=== PATIENT | female | born 1960 | race Caucasian/White ===

== ENCOUNTER 2020-12-07 12:51 | Inpatient (IN) | payer OTHER ==
[~2020-12-07] VITALS: Ht 152.4 cm; Wt 80.5 kg
[2020-12-07] MEDS ORDERED: ASPIRIN CHEWABL81 MG PO (13:45)
[2020-12-07] MEDS ORDERED: COGENTIN0.5 MG PO (13:46)
[2020-12-07] MEDS ORDERED: BISACODYL LAXATI5 MG PO (13:47)
[2020-12-07] MEDS ORDERED: COMBIVENT RESPIM4 GM INH (13:49)
[2020-12-07] MEDS ORDERED: CRESTOR20 M1 PO (13:50)
[2020-12-07] MEDS ORDERED: DEPAKOTE250 MG PO (13:52)
[2020-12-07] MEDS ORDERED: GLIPIZIDE5 MG PO (13:53)
[2020-12-07] MEDS ORDERED: JANUVIA100 MG PO (13:54)
[2020-12-07] MEDS ORDERED: CLARITIN10 MG PO (13:55)
[2020-12-07] MEDS ORDERED: LEVOTHYROXINE50 MCG PO (13:55)
[2020-12-07] MEDS ORDERED: MELOXICAM7.5 MG PO (13:56)
[2020-12-07] MEDS ORDERED: ONE-DAILY MULT1 EAC1 PO (13:57)
[2020-12-07] MEDS ORDERED: METOCLOPRAMIDE10 M1 PO (13:57)
[2020-12-07] MEDS ORDERED: NYSTATIN CREAM15 GM T (13:59)
[2020-12-07] MEDS ORDERED: NITROSTAT0.4 MG SL (13:59)
[2020-12-07] MEDS ORDERED: OCEAN104 ML NAS (14:00)
[2020-12-07] MEDS ORDERED: OXYBUTYNIN5 MG PO (14:01)
[2020-12-07] MEDS ORDERED: MIRALAX POWDER17 G1 PO (14:01)
[2020-12-07] MEDS ORDERED: REXULTI0.5 MG PO (14:02)
[2020-12-07] MEDS ORDERED: REXULTI1 MG PO (14:03)
[2020-12-07] MEDS ORDERED: SENNA8.6 MG PO (14:04)
[2020-12-07] MEDS ORDERED: SERTRALINE HYD100 MG PO (14:04)
[2020-12-07] MEDS ORDERED: VITAMIN D325 MCG PO (14:05)
[2020-12-07] MEDS ORDERED: ZOFRAN4 MG PO (14:06)
[2020-12-07 18:19] VITALS: BP 121/68
[2020-12-07 20:00] VITALS: BP 121/73
[2020-12-08 06:50] LABS: HEMATOCRIT 25.7 % (37.0-47.0); MEAN CELL VOLUME 95.5 fl (81.0-99.0); MEAN CORPUSCULAR HGB 29.4 pg (27.0-31.0); MEAN CORPUSCULAR HGB CONC 30.7 g/dl (33.0-37.0); MEAN PLATELET VOLUME 9.7 fl (9.6-12.3); NUCLEATED RED BLOOD CELL 0.1 10*3/uL (0.0-0.0); NUCLEATED RED BLOOD CELL 1.6 % (0.0-0.0); PLATELET COUNT AUTOMATED 209 10*3/uL (130-400); RED BLOOD COUNT 2.69 10*6/uL (4.10-5.10); RED CELL DISTRI WIDTH 21.4 % (0-14.5); WHITE BLOOD COUNT 5.1 10*3/uL (4.8-10.8)
[2020-12-08 06:51] LABS: ALBUMIN 2.3 gm/dl (3.1-4.5); ALKALINE PHOSPHATASE 90 U/L (45-117); BUN 17 mg/dl (7-24); CHLORIDE 100 mmol/L (98-107); CHOLESTEROL 90 mg/dL (<200); CREATININE 0.58 mg/dL (0.55-1.02); LDL CHOLESTEROL 40 mg/dL (9-159); SGOT/AST 44 IU/L (3-35); SGPT/ALT 21 U/L (12-78); SODIUM 138 mmol/L (136-145); TOTAL PROTEIN 5.9 gm/dL (6.4-8.2); TRIGLYCERIDES 125 mg/dl (<150)
[2020-12-08 07:42] LABS: ATYPICAL LYMPHS 1 % (0-0); PLATELET SUFFICIENCY NORMAL (NORMAL); POLYCHROMASIA SLIGHT; TOTAL CELLS COUNTED 100 #CELLS
[2020-12-08 07:55] VITALS: BP 110/59
[2020-12-08 08:25] LABS: VITAMIN D, 25-HYDROXY 63.9 ng/mL (30-100)
[2020-12-08 20:00] VITALS: BP 127/60
[2020-12-09 07:20] VITALS: BP 116/62
[2020-12-09 19:47] VITALS: BP 114/63
[2020-12-10 07:58] VITALS: BP 119/58
[2020-12-10 18:05] LABS: BILIRUBIN Negative (Negative); BLOOD Negative (Negative); CLARITY Clear (Clear); COLOR Dark Yellow (Yellow); GLUCOSE Negative (Negative); KETONE Trace (Negative); LEUKO ESTERASE Negative (Negative); NITRITE Negative (Negative); SPECIFIC GRAVITY 1.015 (1.001-1.030)
[2020-12-10 18:15] LABS: BACTERIA TRACE; EPITHELIAL CELLS 0-2; MUCOUS TRACE
[2020-12-10 20:00] VITALS: BP 126/86
[2020-12-11 07:45] VITALS: BP 120/74
[2020-12-11 20:00] VITALS: BP 127/54
[2020-12-12 07:43] VITALS: BP 117/79
[2020-12-12 20:00] VITALS: BP 105/60
[2020-12-13 08:00] VITALS: BP 113/61
[2020-12-13 20:00] VITALS: BP 124/65
[2020-12-14 07:23] VITALS: BP 106/55
[2020-12-14 15:12] LABS: BASO % 0.5 % (0.0-1.0); EOS % 0.6 % (1.0-4.0); LYMPH # 1.7 10*3/uL (1.3-4.4); LYMPH % 26.1 % (27.0-41.0); MEAN CELL VOLUME 94.3 fl (81.0-99.0); MEAN CORPUSCULAR HGB 29.4 pg (27.0-31.0); MEAN CORPUSCULAR HGB CONC 31.1 g/dl (33.0-37.0); MEAN PLATELET VOLUME 10.6 fl (9.6-12.3); MONO # 0.4 10*3/uL (0.1-1.0); MONO % 5.4 % (3.0-9.0); NEUT # 4.5 10*3/uL (2.3-7.9); NEUT % 66.9 % (47.0-73.0); PLATELET COUNT AUTOMATED 237 10*3/uL (130-400); RED BLOOD COUNT 3.71 10*6/uL (4.10-5.10); RED CELL DISTRI WIDTH 20.1 % (0-14.5); WHITE BLOOD COUNT 6.7 10*3/uL (4.8-10.8)
[2020-12-14 15:36] LABS: ALBUMIN 2.6 gm/dl (3.1-4.5); BUN 19 mg/dl (7-24); CHLORIDE 97 mmol/L (98-107); CREATININE 0.88 mg/dL (0.55-1.02); POTASSIUM 2.5 mmol/L (3.5-5.1); SGOT/AST 83 IU/L (3-35); SGPT/ALT 41 U/L (12-78); SODIUM 136 mmol/L (136-145)
[2020-12-14 15:44] LABS: ALKALINE PHOSPHATASE 113 U/L (45-117); TOTAL PROTEIN 6.8 gm/dL (6.4-8.2)
[2020-12-14 20:16] VITALS: BP 105/86; BP 129/51
[2020-12-15 06:35] LABS: BUN 17 mg/dl (7-24); CHLORIDE 105 mmol/L (98-107); CREATININE 0.82 mg/dL (0.55-1.02); POTASSIUM 3.7 mmol/L (3.5-5.1); SODIUM 140 mmol/L (136-145)
[2020-12-15 08:04] VITALS: BP 112/64
[2020-12-15 20:00] VITALS: BP 117/82
[2020-12-16 07:44] VITALS: BP 107/72
[2020-12-16 20:00] VITALS: BP 118/82
[2020-12-17 07:55] VITALS: BP 122/78
[2020-12-17 20:00] VITALS: BP 113/64
[2020-12-18 07:31] VITALS: BP 113/70
[2020-12-18 20:00] VITALS: BP 115/89
[2020-12-19 07:19] VITALS: BP 110/62
[2020-12-19 20:00] VITALS: BP 116/80
[2020-12-20 08:00] VITALS: BP 127/65
[2020-12-20 20:00] VITALS: BP 132/87
[2020-12-21 08:00] VITALS: BP 107/62
[2020-12-21 20:00] VITALS: BP 128/79
[2020-12-22 07:36] VITALS: BP 113/65
[2020-12-22 07:38] LABS: BASO # 0.1 10*3/uL (0.0-0.1); BASO % 0.8 % (0.0-1.0); EOS # 0.2 10*3/uL (0.0-0.4); EOS % 2.9 % (1.0-4.0); HEMATOCRIT 30.3 % (37.0-47.0); LYMPH # 2.4 10*3/uL (1.3-4.4); LYMPH % 38.2 % (27.0-41.0); MEAN CELL VOLUME 95.9 fl (81.0-99.0); MEAN CORPUSCULAR HGB 30.1 pg (27.0-31.0); MEAN CORPUSCULAR HGB CONC 31.4 g/dl (33.0-37.0); MEAN PLATELET VOLUME 10.3 fl (9.6-12.3); MONO # 0.4 10*3/uL (0.1-1.0); MONO % 6.6 % (3.0-9.0); NEUT # 3.1 10*3/uL (2.3-7.9); NEUT % 50.9 % (47.0-73.0); PLATELET COUNT AUTOMATED 218 10*3/uL (130-400); RED BLOOD COUNT 3.16 10*6/uL (4.10-5.10); WHITE BLOOD COUNT 6.2 10*3/uL (4.8-10.8)
[2020-12-22 07:54] LABS: ALBUMIN 1.9 gm/dl (3.1-4.5); ALKALINE PHOSPHATASE 188 U/L (45-117); BUN 17 mg/dl (7-24); CHLORIDE 103 mmol/L (98-107); CREATININE 0.61 mg/dL (0.55-1.02); POTASSIUM 3.3 mmol/L (3.5-5.1); SGOT/AST 90 IU/L (3-35); SGPT/ALT 37 U/L (12-78); SODIUM 137 mmol/L (136-145); TOTAL PROTEIN 5.7 gm/dL (6.4-8.2)
[2020-12-22 20:00] VITALS: BP 132/75
[2020-12-23 08:11] VITALS: BP 138/88
[2020-12-23 09:26] LABS: ALBUMIN 2.2 gm/dl (3.1-4.5); ALKALINE PHOSPHATASE 224 U/L (45-117); BUN 14 mg/dl (7-24); CHLORIDE 100 mmol/L (98-107); CREATININE 0.93 mg/dL (0.55-1.02); POTASSIUM 2.9 mmol/L (3.5-5.1); SGOT/AST 97 IU/L (3-35); SGPT/ALT 40 U/L (12-78); SODIUM 135 mmol/L (136-145); TOTAL PROTEIN 6.6 gm/dL (6.4-8.2)
[2020-12-23 19:27] VITALS: BP 131/77
[2020-12-24 08:00] VITALS: BP 122/57
[2020-12-24 20:00] VITALS: BP 110/64
[2020-12-25 07:09] LABS: BUN 15 mg/dl (7-24); CHLORIDE 108 mmol/L (98-107); CREATININE 0.66 mg/dL (0.55-1.02); POTASSIUM 3.4 mmol/L (3.5-5.1); SODIUM 141 mmol/L (136-145)
[2020-12-25 08:00] VITALS: BP 126/90
[2020-12-25 20:00] VITALS: BP 106/68
[2020-12-26 07:16] LABS: BUN 16 mg/dl (7-24); CHLORIDE 106 mmol/L (98-107); CREATININE 0.57 mg/dL (0.55-1.02); SODIUM 138 mmol/L (136-145)
[2020-12-26 08:00] VITALS: BP 98/63
[2020-12-26 17:38] LABS: BILIRUBIN Negative (Negative); BLOOD Negative (Negative); CLARITY Turbid (Clear); COLOR Orange (Yellow); GLUCOSE Negative (Negative); KETONE Trace (Negative); LEUKO ESTERASE 3+ (Negative); NITRITE Positive (Negative); PH 5.5 (4.5-8.0); SPECIFIC GRAVITY 1.025 (1.001-1.030)
[2020-12-26 17:47] LABS: BACTERIA 3+; EPITHELIAL CELLS 0-2; WBC 21-30 wbc/hpf (0-5)
[2020-12-26 20:00] VITALS: BP 129/81
[2020-12-27 07:24] LABS: BUN 17 mg/dl (7-24); CHLORIDE 107 mmol/L (98-107); CREATININE 0.61 mg/dL (0.55-1.02); POTASSIUM 3.3 mmol/L (3.5-5.1); SODIUM 138 mmol/L (136-145)
[2020-12-27 07:54] VITALS: BP 129/73
[2020-12-27 20:00] VITALS: BP 129/73
[2020-12-28 06:33] LABS: BASO # 0.1 10*3/uL (0.0-0.1); BASO % 0.5 % (0.0-1.0); EOS # 0.1 10*3/uL (0.0-0.4); EOS % 0.9 % (1.0-4.0); HEMATOCRIT 32.2 % (37.0-47.0); LYMPH # 2.4 10*3/uL (1.3-4.4); LYMPH % 26.8 % (27.0-41.0); MEAN CELL VOLUME 99.4 fl (81.0-99.0); MEAN CORPUSCULAR HGB 30.9 pg (27.0-31.0); MEAN CORPUSCULAR HGB CONC 31.1 g/dl (33.0-37.0); MEAN PLATELET VOLUME 9.7 fl (9.6-12.3); MONO # 0.5 10*3/uL (0.1-1.0); MONO % 5.4 % (3.0-9.0); NEUT % 65.9 % (47.0-73.0); PLATELET COUNT AUTOMATED 240 10*3/uL (130-400); RED BLOOD COUNT 3.24 10*6/uL (4.10-5.10); WHITE BLOOD COUNT 9.1 10*3/uL (4.8-10.8)
[2020-12-28 06:53] LABS: ALBUMIN 1.9 gm/dl (3.1-4.5); BUN 16 mg/dl (7-24); CHLORIDE 108 mmol/L (98-107); POTASSIUM 3.5 mmol/L (3.5-5.1); SODIUM 138 mmol/L (136-145)
[2020-12-28 06:57] LABS: ALKALINE PHOSPHATASE 189 U/L (45-117); CREATININE 0.55 mg/dL (0.55-1.02); SGOT/AST 76 IU/L (3-35); SGPT/ALT 28 U/L (12-78); TOTAL PROTEIN 5.9 gm/dL (6.4-8.2)
[2020-12-28 07:56] VITALS: BP 116/84
[2020-12-28 19:38] VITALS: BP 106/57
[2020-12-29 08:00] VITALS: BP 105/49
[2020-12-29 20:00] VITALS: BP 135/71
[2020-12-30 07:45] VITALS: BP 125/77; BP 125/79
[2020-12-30 20:00] VITALS: BP 139/80
[2020-12-31 06:19] LABS: BASO % 0.6 % (0.0-1.0); EOS # 0.1 10*3/uL (0.0-0.4); EOS % 2.6 % (1.0-4.0); HEMATOCRIT 27.2 % (37.0-47.0); LYMPH % 36.7 % (27.0-41.0); MEAN CELL VOLUME 100.4 fl (81.0-99.0); MEAN CORPUSCULAR HGB 30.6 pg (27.0-31.0); MEAN CORPUSCULAR HGB CONC 30.5 g/dl (33.0-37.0); MEAN PLATELET VOLUME 9.3 fl (9.6-12.3); MONO # 0.3 10*3/uL (0.1-1.0); MONO % 5.6 % (3.0-9.0); NEUT # 2.9 10*3/uL (2.3-7.9); NEUT % 53.8 % (47.0-73.0); PLATELET COUNT AUTOMATED 189 10*3/uL (130-400); RED BLOOD COUNT 2.71 10*6/uL (4.10-5.10); RED CELL DISTRI WIDTH 21.8 % (0-14.5); WHITE BLOOD COUNT 5.3 10*3/uL (4.8-10.8)
[2020-12-31 06:33] LABS: ALBUMIN 1.6 gm/dl (3.1-4.5); BUN 12 mg/dl (7-24); CHLORIDE 110 mmol/L (98-107); CREATININE 0.53 mg/dL (0.55-1.02); POTASSIUM 3.5 mmol/L (3.5-5.1); SGOT/AST 110 IU/L (3-35); SGPT/ALT 24 U/L (12-78); SODIUM 141 mmol/L (136-145)
[2020-12-31 06:36] LABS: ALKALINE PHOSPHATASE 141 U/L (45-117); TOTAL PROTEIN 5.1 gm/dL (6.4-8.2)
[2020-12-31 07:58] VITALS: BP 128/73
[2020-12-31 20:00] VITALS: BP 132/82
[2021-01-01 08:00] VITALS: BP 127/68
[2021-01-01 19:49] VITALS: BP 116/75
[2021-01-02 06:47] LABS: BASO # 0.1 10*3/uL (0.0-0.1); BASO % 0.9 % (0.0-1.0); EOS # 0.1 10*3/uL (0.0-0.4); EOS % 0.7 % (1.0-4.0); HEMATOCRIT 32.9 % (37.0-47.0); LYMPH # 3.9 10*3/uL (1.3-4.4); MEAN PLATELET VOLUME 9.4 fl (9.6-12.3); MONO # 0.6 10*3/uL (0.1-1.0); NEUT % 51.8 % (47.0-73.0); PLATELET COUNT AUTOMATED 273 10*3/uL (130-400); RED BLOOD COUNT 3.29 10*6/uL (4.10-5.10); RED CELL DISTRI WIDTH 22.1 % (0-14.5); WHITE BLOOD COUNT 9.7 10*3/uL (4.8-10.8)
[2021-01-02 08:03] VITALS: BP 139/85
[2021-01-02] MEDS ORDERED: ATIVAN1 MG PO (15:14)
[2021-01-02] MEDS ORDERED: ATIVAN2 MG/1 ML IM (15:16)
[2021-01-02 20:00] VITALS: BP 137/82
[2021-01-02 22:35] LABS: BILIRUBIN Negative (Negative); BLOOD Negative (Negative); CLARITY Cloudy (Clear); COLOR Dark Yellow (Yellow); GLUCOSE Negative (Negative); KETONE Trace (Negative); LEUKO ESTERASE 3+ (Negative); NITRITE Negative (Negative)
[2021-01-02 22:52] LABS: EPITHELIAL CELLS TNTC
[2021-01-02 22:53] LABS: WBC 41-50 wbc/hpf (0-5)
[2021-01-02 22:55] LABS: BACTERIA TRACE
[2021-01-03 07:43] VITALS: BP 122/58
[2021-01-03 20:00] VITALS: BP 115/63
[2021-01-04 07:46] VITALS: BP 102/59
[2021-01-04 09:46] LABS: BASO # 0.1 10*3/uL (0.0-0.1); BASO % 0.8 % (0.0-1.0); EOS # 0.1 10*3/uL (0.0-0.4); EOS % 0.8 % (1.0-4.0); HEMATOCRIT 34.2 % (37.0-47.0); LYMPH # 2.1 10*3/uL (1.3-4.4); LYMPH % 27.7 % (27.0-41.0); MEAN CELL VOLUME 100.3 fl (81.0-99.0); MEAN CORPUSCULAR HGB 31.1 pg (27.0-31.0); MEAN PLATELET VOLUME 9.4 fl (9.6-12.3); MONO # 0.5 10*3/uL (0.1-1.0); MONO % 6.9 % (3.0-9.0); NEUT # 4.7 10*3/uL (2.3-7.9); NEUT % 63.4 % (47.0-73.0); PLATELET COUNT AUTOMATED 291 10*3/uL (130-400); RED BLOOD COUNT 3.41 10*6/uL (4.10-5.10); RED CELL DISTRI WIDTH 21.3 % (0-14.5); WHITE BLOOD COUNT 7.4 10*3/uL (4.8-10.8)
[2021-01-04 20:00] VITALS: BP 122/60
[2021-01-05 07:35] VITALS: BP 120/56
[2021-01-05 14:00] VITALS: BP 98/50
[2021-01-05 20:48] VITALS: BP 121/55
[2021-01-06 08:00] VITALS: BP 119/69
[2021-01-06 19:05] VITALS: BP 131/77
[2021-01-07 07:43] VITALS: BP 104/63
[2021-01-07 13:00] VITALS: BP 110/78
[2021-01-07 20:00] VITALS: BP 123/71
[2021-01-08 08:00] VITALS: BP 101/83
[2021-01-08 13:30] VITALS: BP 98/71
[2021-01-08 20:00] VITALS: BP 94/58
[2021-01-09 07:33] VITALS: BP 123/87
[2021-01-09 14:00] VITALS: BP 108/68
[2021-01-10 07:54] VITALS: BP 98/55
[2021-01-10 14:00] VITALS: BP 102/64
[2021-01-10 14:12] LABS: BASO # 0.1 10*3/uL (0.0-0.1); BASO % 1.2 % (0.0-1.0); EOS # 0.2 10*3/uL (0.0-0.4); EOS % 2.5 % (1.0-4.0); LYMPH # 1.7 10*3/uL (1.3-4.4); LYMPH % 25.8 % (27.0-41.0); MONO # 0.3 10*3/uL (0.1-1.0); MONO % 4.6 % (3.0-9.0); NEUT # 4.4 10*3/uL (2.3-7.9); NEUT % 65.5 % (47.0-73.0); WHITE BLOOD COUNT 6.8 10*3/uL (4.8-10.8)
[2021-01-10 20:00] VITALS: BP 110/61
[2021-01-11 07:29] VITALS: BP 107/57
[2021-01-11 11:16] VITALS: BP 90/62
[2021-01-11 13:00] VITALS: BP 112/64
[2021-01-11 20:00] VITALS: BP 113/81
[2021-01-12 08:00] VITALS: BP 98/51
[2021-01-12] MEDS ORDERED: VITAMIN C500 M4 PO (09:53)
[2021-01-12] MEDS ORDERED: PHARMASSURE FO0.4 MG PO (09:53)
[2021-01-12] MEDS ORDERED: CLOZAPINE100 MG PO (09:53)
[2021-01-12] MEDS ORDERED: ZOLPIDEM TART5 MG PO (09:53)
[2021-01-12] MEDS ORDERED: CLOZAPINE25 MG PO (09:53)
[2021-01-12] MEDS ORDERED: BENZTROPINE ME0.5 MG PO (09:53)
== END 2021-01-12 10:05 | DRG 885 ==
LOC: 3N 12:51
PROVIDERS: Counselor Professional; Hospitalist; Internal Medicine; Nurse Practitioner Women's Health; Registered Nurse; Student in an Organized Health Care Education/Training Program; ADMIT Psychiatry & Neurology Psychiatry; ATTEND Psychiatry & Neurology Psychiatry
DX: F25.0 Schizoaffective disorder, bipolar type (principal); E43 Unspecified severe protein-calorie malnutrition; U07.1 COVID-19; F33.2 Major depressive disorder, recurrent severe without psychotic features; E11.9 Type 2 diabetes mellitus without complications; M19.90 Unspecified osteoarthritis, unspecified site; E78.5 Hyperlipidemia, unspecified; F34.1 Dysthymic disorder; G89.4 Chronic pain syndrome; F43.10 Post-traumatic stress disorder, unspecified; Z88.2 Allergy status to sulfonamides; Z88.1 Allergy status to other antibiotic agents; Z88.8 Allergy status to other drugs, medicaments and biological substances; Z79.82 Long term (current) use of aspirin; Z79.899 Other long term (current) drug therapy